=== PATIENT | female | born 1965 | race African-American/Black ===

== ENCOUNTER 2018-07-30 03:18 | Emergency (ER) | payer OTHER ==
[2018-07-30 04:17] VITALS: TEMP 98.2; BMI 29.8
--- NOTE | 2018-07-30 04:18 | PDOC ---
*Physical Exam - Vital Signs Last Vital Signs Temp Pulse Resp BP Pulse Ox 98.2 F 84 18 171/116 99 07/30/18 03:45 07/30/18 03:45 07/30/18 03:45 07/30/18 03:45 07/30/18 03:45 <Kimberly Johns - Last Filed: 07/30/18 05:36> ED Treatment Course - LABORATORY CBC & Chemistry Diagram: 07/30/18 04:55 07/30/18 04:55 - ADDITIONAL ORDERS Additional order review: Laboratory Results 07/30/18 07/30/18 04:55 04:55 PT with INR 11.00 INR 0.97 Sodium 142 Potassium 4.0 Chloride 108 H Carbon Dioxide 28 Anion Gap 6 L BUN 13 Creatinine 0.9 Creat Clearance w eGFR > 60 Random Glucose 94 Calcium 8.4 L Magnesium 2.2 Total Bilirubin 0.4 AST 31 ALT 26 Alkaline Phosphatase 104 Creatine Kinase 98 Troponin I < 0.02 Total Protein 7.0 Albumin 3.7 07/30/18 04:55 RBC 4.77 MCV 80.2 MCHC 33.1 RDW 14.0 MPV 8.5 Neutrophils % 55.2 Lymphocytes % 34.3 Monocytes % 7.0 Eosinophils % 2.7 Basophils % 0.8 - Medications Given in the ED: ED Medications Discontinued Medications Generic Name Dose Route Start Last Admin Trade Name Freq PRN Reason Stop Dose Admin Amlodipine Besylate 5 mg 07/30/18 05:02 07/30/18 05:16 Norvasc - PO 07/30/18 05:03 Not Given ONCE ONE Labetalol HCl 10 mg 07/30/18 05:08 07/30/18 05:08 Normodyne Injection - IVPUSH 07/30/18 05:09 10 mg ONCE ONE Administration <Kimberly Johns - Last Filed: 07/30/18 05:36> Medical Decision Making - Medical Decision Making 07/30/18 04:18 Ms. Morton is a 53-year-old female, newly diagnosed with hypertension who presents emergency Department with of a blood pressure, headache, right arm pain. No chest pain. No shortness of breath. Will assess patient for hypertensive urgency by doing labs, EKG, CXR, consider CT head Will treat Headache Will re assess Pt seen by Midlevel Provider under my direct supervision Pt interviewed and examined Ancillary studies reviewed I agree with plan as outlined by Midlevel Provider <Juana Dunn - Last Filed: 07/30/18 04:11> - Medical Decision Making 07/30/18 05:34 PCP: Dr. Donna Barrientos [phone] [place] [address] <Kimberly Johns - Last Filed: 07/30/18 05:36> *DC/Admit/Observation/Transfer <Juana Dunn - Last Filed: 07/30/18 04:11> - Attestations Scribe Attestion: 07/30/18 05:35 Documentation prepared by Kimberly Johns, acting as medical logistics specialist for Juana Dunn MD. <Kimberly Johns - Last Filed: 07/30/18 05:36> Diagnosis at time of Disposition: Hypertensive urgency Hypertension Qualifiers: Hypertension type: essential hypertension Qualified Code(s): I10 - Essential ( primary) hypertension - Referrals Referrals: ON STAFF,NOT [Non Staff, Medical] - - Patient Instructions - Post Discharge Activity
--- NOTE | 2018-07-30 04:27 | PDOC ---
History of Present Illness - General Chief Complaint: Blood Pressure Problem Stated Complaint: HIGH BP Time Seen by Provider: 07/30/18 03:50 History Source: Patient - History of Present Illness Initial Comments: 07/30/18 04:27 53 year old female c/o headache, left sided neck and shoulder pain and dizziness with high blood pressure. patient reports that she has been to [facility] for similar complaint last week. head ct negative at the time, denies chest pain, fever/ chills Past History - Past Medical History Allergies/Adverse Reactions: Allergies Allergy/AdvReac Type Severity Reaction Status Date / Time No Known Allergies Allergy Verified 07/30/18 04:27 Home Medications: Ambulatory Orders Losartan/Hydrochlorothiazide [Losartan-Hctz 100-12.5 mg Tab] 1 each PO DAILY 11/04 Methimazole [Tapazole -] 2.5 mg PO MOWEFR 07/30/18 Rosuvastatin Calcium [Crestor] 5 mg PO HS 07/30/18 Anemia: No Asthma: No Cancer: No Cardiac Disorders: No CVA: No COPD: No DVT: No Dementia: No Diabetes: No Dialysis: No GI Disorders: No Disorders: No HTN: No Hypercholesterolemia: No Kidney Stones: No Liver Disease: No Psychiatric Problems: No Seizures: No Thyroid Disease: Yes Lung CA: No Other medical history: vertigo - Surgical History Abdominal Surgery: No Appendectomy: No Cardiac Surgery: No Cholecystectomy: No Gastric Stapling: No GI Surgery: No Lung Surgery: No Neurologic Surgery: No - Immunization History Td Vaccination: Yes Immunization Up to Date: Yes - Suicide/Smoking/Psychosocial Hx Smoking History: Unknown if ever smoked Have you smoked in the past 12 months: No Information on smoking cessation initiated: No Hx Alcohol Use: No Drug/Substance Use Hx: No Substance Use Type: None Cardiac Specific PMH - Complaint Specific PMHX Myocardial Infarction: No Review of Systems - Review of Systems Able to Perform ROS?: Yes Is the patient limited [place] proficient: No Constitutional: Yes: Symptoms Reported HEENTM: Yes: Other (neck pain) Neurological: Yes: Headache, Dizziness *Physical Exam - Vital Signs Last Vital Signs Temp Pulse Resp BP Pulse Ox 98.2 F 84 18 171/116 99 07/30/18 03:45 07/30/18 03:45 07/30/18 03:45 07/30/18 03:45 07/30/18 03:45 - Physical Exam General Appearance: Yes: Appropriately Dressed Respiratory/Chest: positive: Lungs Clear, Normal Breath Sounds Cardiovascular: positive: Regular Rhythm, Regular Rate Gastrointestinal/Abdominal: positive: Normal Bowel Sounds, Soft Musculoskeletal: positive: Normal Inspection Extremity: positive: Normal Capillary Refill, Normal Inspection, Normal Range of Motion Integumentary: positive: Normal Color, Dry, Warm Neurologic: positive: Fully Oriented, Alert, Normal Mood/Affect Heart Score/ECG Review - History History: Slightly suspicious - Electrocardiogram EKG: Normal - Age Age: 45-65 - Risk Factors Risk Factors Heart Score: Yes Hx Hypertension Based on the list above the patient has:: 1-2 risk factors - Troponin Troponin: </= normal limit - Score Heart Score - Total: 2 - ECG Intrepretation Rhythm: Regular Rhythm Comment:: 07/30/18 05:18 NSR : 76bpm ED Treatment Course - LABORATORY CBC & Chemistry Diagram: 07/30/18 04:55 07/30/18 04:55 - ADDITIONAL ORDERS Additional order review: Laboratory Results 07/30/18 07/30/18 07/30/18 05:40 05:04 04:55 PT with INR INR Sodium 142 Potassium 4.0 Chloride 108 H Carbon Dioxide 28 Anion Gap 6 L BUN 13 Creatinine 0.9 Creat Clearance w eGFR > 60 Random Glucose 94 Calcium 8.4 L Magnesium 2.2 Total Bilirubin 0.4 AST 31 ALT 26 Alkaline Phosphatase 104 Creatine Kinase 98 Troponin I < 0.02 Total Protein 7.0 Albumin 3.7 TSH 2.04 Urine Color Colorless Urine Appearance Clear Urine pH 6.0 Ur Specific [place] 1.002 Urine Protein Negative Urine Glucose (UA) Negative Urine Ketones Negative Urine Blood 1+ H Urine Nitrite Negative Urine Bilirubin Negative Urine Urobilinogen Negative Ur Leukocyte Esterase Negative Urine WBC (Auto) None Urine RBC (Auto) <1 Ur Epithelial Cells Rare Urine Bacteria Rare 07/30/18 04:55 PT with INR 11.00 INR 0.97 Sodium Potassium Chloride Carbon Dioxide Anion Gap BUN Creatinine Creat Clearance w eGFR Random Glucose Calcium Magnesium Total Bilirubin AST ALT Alkaline Phosphatase Creatine Kinase Troponin I Total Protein Albumin TSH Urine Color Urine Appearance Urine pH Ur Specific [place] Urine Protein Urine Glucose (UA) Urine Ketones Urine Blood Urine Nitrite Urine Bilirubin Urine Urobilinogen Ur Leukocyte Esterase Urine WBC (Auto) Urine RBC (Auto) Ur Epithelial Cells Urine Bacteria 07/30/18 04:55 RBC 4.77 MCV 80.2 MCHC 33.1 RDW 14.0 MPV 8.5 Neutrophils % 55.2 Lymphocytes % 34.3 Monocytes % 7.0 Eosinophils % 2.7 Basophils % 0.8 - RADIOLOGY Radiology Studies Ordered: Category Date Time Status CHEST PA & LAT [RAD] Stat Radiology 07/30/18 04:18 Ordered CAROTID COLOR FLOW DOPP US [US] Stat Ultrasound 07/30/18 06:14 Ordered - Medications Given in the ED: ED Medications Discontinued Medications Generic Name Dose Route Start Last Admin Trade Name Freq PRN Reason Stop Dose Admin Acetaminophen 975 mg 07/30/18 06:09 07/30/18 06:10 Tylenol - PO 07/30/18 06:10 975 mg ONCE ONE Administration Amlodipine Besylate 5 mg 07/30/18 05:02 07/30/18 05:16 Norvasc - PO 07/30/18 05:03 Not Given ONCE ONE Labetalol HCl 10 mg 07/30/18 05:08 07/30/18 05:08 Normodyne Injection - IVPUSH 07/30/18 05:09 10 mg ONCE ONE Administration Medical Decision Making - Medical Decision Making 07/30/18 05:04 A; hypertension; headache/ neck pain P: cbc cmp cardiac chest xray likely observation 07/30/18 05:18 07/30/18 07:01 Placed on ED obs. pending carotid U/S. will continue to monitor b/p *DC/Admit/Observation/Transfer Diagnosis at time of Disposition: Hypertensive urgency Hypertension Qualifiers: Hypertension type: essential hypertension Qualified Code(s): I10 - Essential ( primary) hypertension - Discharge Dispostion Decision to Admit order: Yes Decision to Admit order Date/Time: Decision to Admit Order Category Date Time Status Decision to Admit to Hospital Routine Admission 07/30/18 06:59 Ordered - Referrals Referrals: ON STAFF,NOT [Non Staff, Medical] - - Patient Instructions - Post Discharge Activity
[2018-07-30] MEDS ORDERED: amLODIPine BESYLATE 5 MG TABLET (FP) PO ONE (05:02)
[2018-07-30 05:06] LABS: BASO % 0.8 % (0-2.0); EOS % 2.7 % (0-4.5); HEMATOCRIT 38.2 % (32.4-45.2); HEMOGLOBIN 12.7 GM/dL (10.7-15.3); LYMPH % 34.3 % (8-40); MCH 26.6 pg (25.7-33.7); MCHC 33.1 g/dl (32.0-36.0); MEAN CELL VOLUME 80.2 fl (80-96); MEAN PLT VOLUME 8.5 fl (7.5-11.1); NEUT % 55.2 % (42.8-82.8); PLATELET COUNT 166 K/MM3 (134-434); RBC 4.77 M/mm3 (3.60-5.2)
[2018-07-30] MEDS ORDERED: LABETALOL HCL 5 MG/1 ML (100MG/20 ML VIAL) IVPUSH ONE (05:08)
[2018-07-30 05:21] LABS: INR 0.97 (0.83-1.09)
[2018-07-30 05:29] LABS: ALBUMIN 3.7 g/dl (3.4-5.0); ANION GAP 6 MMOL/L (8-16); BILIRUBIN,TOTAL 0.4 mg/dL (0.2-1.0); BLOOD UREA NITROGEN 13 mg/dL (7-18); CALCIUM 8.4 mg/dL (8.5-10.1); CHLORIDE 108 mmol/L (98-107); CO2 28 mmol/L (21-32); CREATININE 0.9 mg/dL (0.55-1.02); GLUCOSE,RANDOM 94 mg/dL (74-106); SGPT/ALT 26 U/L (12-78); SODIUM 142 mmol/L (136-145)
[2018-07-30 05:32] LABS: ALK PHOS 104 U/L (45-117)
[2018-07-30 05:33] LABS: MAGNESIUM 2.2 mg/dL (1.8-2.4); SGOT/AST 31 U/L (15-37)
[2018-07-30 05:53] LABS: URINE APPEARANCE CLEAR; URINE BILIRUBIN NEGATIVE (<2.0 mg/dL); URINE COLOR COLORLESS; URINE GLUCOSE (UA) NEGATIVE (NEGATIVE); URINE KETONE NEGATIVE (NEGATIVE); URINE LEUK ESTERASE NEGATIVE (NEGATIVE); URINE NITRITE NEGATIVE (NEGATIVE); URINE PROTEIN NEGATIVE (NEGATIVE); URINE UROBILINOGEN NEGATIVE mg/dL (0.2-1.0)
[2018-07-30 06:07] LABS: EPI CELLS RARE /HPF (FEW); URINE BACTERIA RARE /hpf (NONE SEEN)
[2018-07-30] MEDS ORDERED: ACETAMINOPHEN 500 MG TABLET (FP) PO ONE (06:09)
[2018-07-30] MEDS ORDERED: ACETAMINOPHEN 325 MG TABLET (FP) ONE (06:54)
--- NOTE | 2018-07-30 07:46 | PDOC ---
*Physical Exam - Vital Signs Last Vital Signs Temp Pulse Resp BP Pulse Ox 98.2 F 84 18 171/116 99 07/30/18 03:45 07/30/18 03:45 07/30/18 03:45 07/30/18 03:45 07/30/18 03:45 ED Treatment Course - LABORATORY CBC & Chemistry Diagram: 07/30/18 04:55 07/30/18 04:55 - ADDITIONAL ORDERS Additional order review: Laboratory Results 07/30/18 07/30/18 07/30/18 05:40 05:04 04:55 PT with INR INR Sodium 142 Potassium 4.0 Chloride 108 H Carbon Dioxide 28 Anion Gap 6 L BUN 13 Creatinine 0.9 Creat Clearance w eGFR > 60 Random Glucose 94 Calcium 8.4 L Magnesium 2.2 Total Bilirubin 0.4 AST 31 ALT 26 Alkaline Phosphatase 104 Creatine Kinase 98 Troponin I < 0.02 Total Protein 7.0 Albumin 3.7 TSH 2.04 Urine Color Colorless Urine Appearance Clear Urine pH 6.0 Ur Specific [place] 1.002 Urine Protein Negative Urine Glucose (UA) Negative Urine Ketones Negative Urine Blood 1+ H Urine Nitrite Negative Urine Bilirubin Negative Urine Urobilinogen Negative Ur Leukocyte Esterase Negative Urine WBC (Auto) None Urine RBC (Auto) <1 Ur Epithelial Cells Rare Urine Bacteria Rare 07/30/18 04:55 PT with INR 11.00 INR 0.97 Sodium Potassium Chloride Carbon Dioxide Anion Gap BUN Creatinine Creat Clearance w eGFR Random Glucose Calcium Magnesium Total Bilirubin AST ALT Alkaline Phosphatase Creatine Kinase Troponin I Total Protein Albumin TSH Urine Color Urine Appearance Urine pH Ur Specific [place] Urine Protein Urine Glucose (UA) Urine Ketones Urine Blood Urine Nitrite Urine Bilirubin Urine Urobilinogen Ur Leukocyte Esterase Urine WBC (Auto) Urine RBC (Auto) Ur Epithelial Cells Urine Bacteria 07/30/18 04:55 RBC 4.77 MCV 80.2 MCHC 33.1 RDW 14.0 MPV 8.5 Neutrophils % 55.2 Lymphocytes % 34.3 Monocytes % 7.0 Eosinophils % 2.7 Basophils % 0.8 - Medications Given in the ED: ED Medications Discontinued Medications Generic Name Dose Route Start Last Admin Trade Name Freq PRN Reason Stop Dose Admin Acetaminophen 975 mg 07/30/18 06:09 07/30/18 06:10 Tylenol - PO 07/30/18 06:10 975 mg ONCE ONE Administration Amlodipine Besylate 5 mg 07/30/18 05:02 09/12/18 05:16 Norvasc - PO 07/30/18 05:03 Not Given ONCE ONE Labetalol HCl 10 mg 07/30/18 05:08 07/30/18 05:08 Normodyne Injection - IVPUSH 07/30/18 05:09 10 mg ONCE ONE Administration Medical Decision Making - Medical Decision Making 07/30/18 07:24 Patient received in sign out from [employer]. Patient here with complaints of heaviness to the left side of her head neck and upper chest. Patient recently had a head CT and is pending workup from her primary care physician along with starting new antihypertensive medication. Patient pending a carotid duplex. Patient was given labetalol secondary to elevated blood pressure in the ER which improved currently 150/90. 07/30/18 09:57 Carotid duplex shows intimal thickening and very minimal plaque buildup at the common carotid bifurcation and bulb, bilaterally without evidence of hemodynamically significant stenosis. Patient states feeling better after receiving Tylenol. Patient be discharged home to follow-up with Dr. haskins and discussed today's visit along with elevated blood pressure. Patient will be given copy of carotid duplex report *DC/Admit/Observation/Transfer Diagnosis at time of Disposition: Hypertensive urgency Hypertension Qualifiers: Hypertension type: essential hypertension Qualified Code(s): I10 - Essential ( primary) hypertension - Discharge Dispostion Disposition: HOME Condition at time of disposition: Improved - Referrals Referrals: ON STAFF,NOT [Non Staff, Medical] - - Patient Instructions Printed Discharge Instructions: DI for High Blood Pressure Additional Instructions: Please follow up with her primary care physician and bring copy of your ultrasound with you. - Post Discharge Activity
[2018-07-30 10:23] VITALS: BP 127/68; PULSE 86
--- NOTE | 2018-07-30 11:48 | EKG ---
Test Reason : Blood Pressure : / mmHG Vent. Rate : 076 BPM Atrial Rate : 076 BPM P-R Int : 170 ms QRS Dur : 078 ms QT Int : 392 ms P-R-T Axes : 041 029 030 degrees QTc Int : 441 ms NORMAL SINUS RHYTHM NORMAL ECG WHEN COMPARED WITH ECG OF 05-DEC-2010 11:45, NO SIGNIFICANT CHANGE WAS FOUND Confirmed by MASOOD JONES MD ([id number]) on 07/30/2018 11:48:13 AM Referred By: Confirmed By:MASOOD JONES MD
== END 2018-07-30 10:24 | disposition home or self-care (01) ==
LOC: SUPCPDRO 03:18 → JER 03:18 → JERBED 06:59 → UNDOADMOB 06:59 → JER 10:24
PROC: 3E033GC Introduction of Other Therapeutic Substance into Peripheral Vein, Percutaneous Approach (ICD-10-PCS; principal; 2018-07-30)
DX: I16.0 Hypertensive urgency (principal); I10 Essential (primary) hypertension
CPT/HCPCS: 36415; 80053; 81003; 81015; 82550; 83735; 84443; 84484; 85025; 85610; 93005; 93010; 93880-TC; 99284-25